=== PATIENT | male | born 1990 | race Caucasian/White ===

== ENCOUNTER 2024-01-09 14:15 | Emergency (ER) | payer OTHER ==
[~2024-01-09] VITALS: Ht 175.3 cm; Wt 77.1 kg
[2024-01-09] MEDS ORDERED: LIDOCAINE 2% JEL UROJET 10 ML MM ONE (14:34)
[2024-01-09] MEDS ORDERED: DOCU-141 PO (14:51)
[2024-01-09] MEDS ORDERED: ACET-2605 PO (14:51)
[2024-01-09] MEDS ORDERED: HYDR30CR79 TP (14:51)
[2024-01-09] MEDS: LIDOCAINE 2% JEL UROJET 10 ML MM ONE (15:05)
[2024-01-09 15:17] VITALS: BP 122/67; TEMP 98.5; O2SAT 98
== END 2024-01-09 15:17 | disposition home or self-care (01) ==
LOC: ER 14:20
DX: K64.9 Unspecified hemorrhoids (principal)
CPT/HCPCS: 99283; J3490